=== PATIENT | male | born 1960 | race African-American/Black ===

== ENCOUNTER 2024-02-11 13:33 | Outpatient (CLI) | payer OTHER | END 2024-02-11 13:34 | disposition home or self-care (01) | LOC: CSHWCC 13:33 | PROVIDERS: ATTEND Nurse Practitioner Family | DX: T81.31XD Disruption of external operation (surgical) wound, not elsewhere classified, subsequent encounter (principal) | CPT/HCPCS: 11042; 99213; G0463 ==